=== PATIENT | female | born 1955 | race Caucasian/White ===

== ENCOUNTER 2016-09-21 06:49 | Day surgery (SDC) | payer OTHER ==
[~2016-09-21] VITALS: Ht 165.1 cm; Wt 96.0 kg
[~2016-09-21 06:49] MED LIST: ACET325T14 PO; CETI10TA18 PO; DIPH25CA61 PO; METO-93 PO; METO25TA35 PO; OMEP40CA6 PO; VIBRYD PO; ZOLE5INF IV; [UNRECOGNIZED DRUG - OTHER] PO
[2016-09-21] MEDS ORDERED: LACTATED RINGERS 1,000 ML IV SCH (07:26)
[2016-09-21] MEDS ORDERED: LIDOCAINE 1%, 2ML SQ PRN (07:30)
[2016-09-21 07:33] VITALS: BP 158/85
[2016-09-21] MEDS ORDERED: MIDAZOLAM 1 MG/ML, 2ML ONE (07:43)
[2016-09-21] MEDS ORDERED: EPINEPHRINE SYRINGE 0.1 MG/ML, 10ML ONE (07:49)
[2016-09-21] MEDS ORDERED: PROPOFOL 10 MG/ML, 20ML ONE (08:00)
[2016-09-21] MEDS ORDERED: hydrALAzine 20 MG/ML, 1ML IV PRN (08:30)
[2016-09-21] MEDS ORDERED: MIDAZOLAM 1 MG/ML, 2ML IV PRN (08:30)
[2016-09-21] MEDS ORDERED: ONDANSETRON 2MG/ML, 2ML IVPush PRN (08:30)
[2016-09-21] MEDS ORDERED: ACETAMINOPHEN 325 MG TABLET PO PRN (08:30)
[2016-09-21] MEDS ORDERED: METOPROLOL 1 MG/ML, 5ML IV PRN (08:30)
[2016-09-21] MEDS ORDERED: EPHEDRINE 50 MG/ML, 1ML IVPush PRN (08:30)
[2016-09-21] MEDS ORDERED: OXYcodone 5 MG/5 ML ORAL.SOL UDC PO PRN (08:30)
[2016-09-21] MEDS ORDERED: ALBUTEROL SULFATE 2.5 MG/3 ML NPPB PRN (08:30)
[2016-09-21] MEDS ORDERED: PROMETHAZINE 25 MG/ML, 1ML IV PRN (08:30)
[2016-09-21] MEDS ORDERED: LABETALOL 5MG/ML, 20ML IV PRN (08:30)
[2016-09-21] MEDS ORDERED: FENTANYL PF 100 MCG/2ML IV PRN (08:30)
[2016-09-21] MEDS ORDERED: MEPERIDINE/PF 25MG/0.5ML IVPush PRN (08:30)
[2016-09-21] MEDS ORDERED: HYDROmorphone 1 MG/ML, 1ML IV PRN (08:30)
[2016-09-21] MEDS ORDERED: PROMETHAZINE 25 MG/ML, 1ML ONE (09:17)
== END 2016-09-21 11:05 | disposition home or self-care (01) ==
LOC: OUT 06:49
PROVIDERS: ATTEND Internal Medicine Geriatric Medicine
DX: K31.7 Polyp of stomach and duodenum (principal); I10 Essential (primary) hypertension; K21.9 Gastro-esophageal reflux disease without esophagitis; Z85.3 Personal history of malignant neoplasm of breast; Z90.13 Acquired absence of bilateral breasts and nipples
CPT/HCPCS: 43237; 43254; 88305; A4648; J2250; J2550; J2704; J7120

== ENCOUNTER 2018-11-24 12:19 | Outpatient (CLI) | payer OTHER | END 2018-11-24 23:59 | disposition home or self-care (01) | LOC: CFH 12:19 | PROVIDERS: ATTEND Internal Medicine Cardiovascular Disease | DX: I10 Essential (primary) hypertension (principal); E78.00 Pure hypercholesterolemia, unspecified | CPT/HCPCS: 75571 ==

== ENCOUNTER → 2019-08-27 | Outpatient (CLI) | payer MEDICARE ==
[~2019-08-27] MED LIST changes: +OMEP40CA42 PO; -OMEP40CA6 PO
== END | disposition home or self-care (01) ==
LOC: CFH 13:04
PROVIDERS: ATTEND Nurse Practitioner
DX: M85.88 Other specified disorders of bone density and structure, other site (principal); N95.8 Other specified menopausal and perimenopausal disorders
CPT/HCPCS: 77080

== ENCOUNTER 2020-01-28 08:25 | Outpatient (CLI) | payer MEDICARE | END 2020-01-28 23:59 | disposition home or self-care (01) | LOC: CFH 08:25 | PROVIDERS: ATTEND Internal Medicine Cardiovascular Disease | DX: I08.8 Other rheumatic multiple valve diseases (principal); I10 Essential (primary) hypertension; E78.5 Hyperlipidemia, unspecified | CPT/HCPCS: 93306 ==